=== PATIENT | male | born 1950 | race African-American/Black ===

== ENCOUNTER 2025-03-04 18:45 | Emergency (ER) | payer MEDICARE, SELFPAY ==
--- NOTE | 2025-03-04 18:48 | ED_ITS ---
HPI - General Adult General Chief complaint: Unspecified Stated complaint: mouth dry,tired,body weakness Time Seen by Provider: 03/04/25 19:00 Source: patient, RN notes reviewed and old records reviewed Mode of arrival: ambulatory Limitations: no limitations History of Present Illness HPI narrative: 74-year-old male presents to the [facility] with concerns of being fatigued, dry mouth, increased fatigue, increased generalized weakness. Patient reports that has been going on for over a week, family member noticed that he has been off for several days. Patient was concerned as he cannot walk to the top of the stairs without getting tired. Patient is not a very good historian Related Data Home Medications ?Medication ?Instructions ?Recorded ?Confirmed ?Last Taken ?Type atenolol 50 mg tablet mg 03/04/25 Unknown History atorvastatin 10 mg tablet mg 03/04/25 Unknown History finasteride 5 mg tablet mg 03/04/25 Unknown History hydrochlorothiazide 25 mg tablet mg 03/04/25 Unknown History Allergies Allergy/AdvReac Type Severity Reaction Status Date / Time lisinopril Allergy Unknown Unknown Verified 03/04/25 19:18 Review of Systems Review of Systems: All systems reviewed & are unremarkable except as noted in HPI and below Constitutional: Constitutional: Reports as per HPI, Reports body ache(s), Reports fatigue, Reports lethargy and Reports malaise ENT: Reports as per HPI Cardiovascular: Cardiovascular: Reports no additional cardiovascular complaints, Denies chest pain and Denies dyspnea Respiratory: Respiratory: Reports no additional respiratory complaints, Denies chest congestion, Denies cough and Denies dyspnea Musculoskeletal: Musculoskeletal: Reports no additional musculoskeletal complaints Integumentary/Breasts: Skin/Breast: Reports system reviewed and no additional complaints, except as docu PMFSH Past Medical History Medical History (Updated 03/04/25 @ 19:21 by Karon Hoyt APRN) History of high cholesterol History of high blood pressure Comments At the time of my signature, I reviewed and agree with the nursing past medical, surgical, social, and family history. There is no relevant family history pertinent to the patient complaint. Exam Const: General: cooperative, no acute distress, well developed, alert, tired appearing, uncomfortable and well nourished Nutritional Appearance: well nourished Orientation/consciousness: patient oriented x3 Limitations: no limitations HENMT: Head: normal to inspection Ears: hearing grossly normal bilaterally, external ears normal, TM's normal bilaterally, EAC's normal, mastoids normal and no periauricular adenopathy Face and sinus: normal facial exam Mouth: Yes Normal oral and palatal mucosa present, Yes lip normal and Yes tongue normal Throat: posterior oropharynx normal Eyes: General: appearance normal, both eyes and all related structures Alignment and Position: alignment normal Neck: Neck: normal visual inspection, full ROM, no lymphadenopathy and no meningeal signs Chest: Chest palpation & inspection: normal inspection of the chest Resp: Effort & Inspection: normal respiratory effort and able to speak in complete sentences Auscultation: clear to auscultation bilaterally, no crackles, no rales, no rhonchi, no wheezes and diminished lung sounds Cardio: Rate: regular rate Skin: General skin exam: normal color and no rashes or lesions noted Neuro: General: patient oriented x3, gait normal, moves all extremities and no meningeal signs Cognition (Neuro): normal cognition Speech: normal speech Gait exam (Neuro): Normal gait present Extrem: General: normal to inspection, full ROM, capillary refill normal and normal gait Psych: Appearance: grossly normal and well kempt Mental Status: mental status grossly normal Speech and movement: Normal speech and movement present and Clear speech present Affect: normal affect Attitude: cooperative Course Course Level of Care: Express Care Visit Vital Signs Vital signs: Vital Signs Temperature 97.9 F 03/04/25 19:00 Pulse Rate 71 03/04/25 19:00 Respiratory Rate 16 03/04/25 19:00 Blood Pressure 103/75 03/04/25 19:00 Pulse Oximetry 98 03/04/25 19:00 Oxygen Delivery Room Air 03/04/25 19:00 Temperature 97.9 F 03/04/25 19:00 Pulse Rate 71 03/04/25 19:00 Respiratory Rate 16 03/04/25 19:00 Blood Pressure 103/75 03/04/25 19:00 Pulse Oximetry 98 03/04/25 19:00 Oxygen Delivery Room Air 03/04/25 19:00 Reviewed Transfer Transfered to: [facility] Transportation: Other (POV per patient request, declined EMS) Transfer rationale: Patient with at least 1 week history of generalized fatigue, weakness, elevated blood sugar at 509 Sending for further evaluation Accepting physician: Spoke with Candy FRIEDMAN, Medical Decision Making MDM Narrative Medical decision making narrative: Patient sitting in exam room. Patient is nontoxic but appears uncomfortable. Patient presents with vague symptoms of tiredness, dry mouth, fatigue, weakness. Denies any history of diabetes, blood sugar checked, blood sugar 519, sending for higher level of care Transfer instructions reviewed with patient to go directly to the ER. EMS offered, patient and family member declined All questions have been answered, and the patient deny any further questions Some parts of this dictation were generated by voice recognition software and may contain typographical and/or grammatical inaccuracies. Differential Diagnosis Differential Diagnosis: diabetes, cardiac, ACS, generalized weakness, dehydration Medical Records Medical records reviewed: Yes I reviewed the external patient's medical records. Vital Signs Vital Signs: Vital Signs Temperature 97.9 F 03/04/25 19:00 Pulse Rate 71 03/04/25 19:00 Respiratory Rate 16 03/04/25 19:00 Blood Pressure 103/75 03/04/25 19:00 Pulse Oximetry 98 03/04/25 19:00 Oxygen Delivery Room Air 03/04/25 19:00 Temperature 97.9 F 03/04/25 19:00 Pulse Rate 71 03/04/25 19:00 Respiratory Rate 16 03/04/25 19:00 Blood Pressure 103/75 03/04/25 19:00 Pulse Oximetry 98 03/04/25 19:00 Oxygen Delivery Room Air 03/04/25 19:00 Reviewed Lab Data Lab results reviewed: Yes I reviewed the patient's lab results. Labs: Lab Results 03/04/25 Range/Units 19:08 POC Capillary Glucose > 500 H* (65-105) mg/dl Reviewed Critical Care Time Critical Care Time Critical Care Time: No Discharge Plan Discharge Clinical Impression: Weakness, Elevated blood sugar level Fatigue Qualifiers: Fatigue type: unspecified Qualified Code(s): R53.83 - Other fatigue Patient Disposition: Acute Care Hospital Condition: Stable Instructions: Antibiotic Form Patient Language: Setswana Prescriptions: No Action atorvastatin 10 mg tablet hydrochlorothiazide 25 mg tablet atenolol 50 mg tablet finasteride 5 mg tablet Follow-up/Referrals: PHYSICIAN NOT ON STAFF,NONSTAFF [Primary Care Provider] -
[2025-03-04 19:00] VITALS: BP 103/75; PULSE 71; RESP 16; TEMP 36.6; O2SAT 98
[2025-03-04 19:16] LABS: Glucose Point of Care > 500 mg/dl (65-105)
== END 2025-03-04 19:20 | disposition short-term general hospital (02) ==
PROVIDERS: Emergency Provider Nurse Practitioner
DX: R53.1 Weakness (principal); R73.9 Hyperglycemia, unspecified; R53.83 Other fatigue; I10 Essential (primary) hypertension; E78.00 Pure hypercholesterolemia, unspecified
CPT/HCPCS: 82948; 99212; G0463